=== PATIENT | male | born 1960 | race Caucasian/White ===

== ENCOUNTER → 2018-03-03 | Outpatient (CLI) | payer BC ==
--- NOTE | 2018-03-03 22:37 | EKG REPORT ---
SEVERITY:- NORMAL ECG - SINUS RHYTHM : Confirmed by: Mary Diaz 03-Mar-2018 22:37:19
== END ==
LOC: OD 11:07
PROVIDERS: ATTEND Surgery
DX: Z01.810 Encounter for preprocedural cardiovascular examination (principal)
CPT/HCPCS: 93005; 93010